=== PATIENT | male | born 1970 | race African-American/Black ===

== ENCOUNTER 2016-12-30 20:32 | Outpatient (CLI) ==
[2016-12-30 23:36] VITALS: BMI 29.0
== END 2016-12-30 20:33 ==
LOC: AMBL 20:32
PROVIDERS: ATTEND Internal Medicine Geriatric Medicine
DX: R07.9 Chest pain, unspecified (principal); R20.2 Paresthesia of skin; I49.3 Ventricular premature depolarization; D57.3 Sickle-cell trait

== ENCOUNTER 2016-12-30 20:49 | Observation (INO) ==
[2016-12-30 21:19] LABS: BASOPHILS % (AUTO) 0.2 % (0.0-3.0); EOSINOPHILS % (AUTO) 0.4 % (0.0-7.0); HEMOGLOBIN 13.8 g/dl (14.0-18.0); IMMATURE GRANULOCYTE % (AUTO) 0.4 % (0.0-5.0); LYMPHOCYTES # (AUTO) 1.4 K/uL (0.60-3.4); MEAN CORPUSCULAR HEMOGLOBIN 28.3 pg (27.0-31.0); MEAN CORPUSCULAR HGB CONC 33.7 (31.8-35.4); MONOCYTES # (AUTO) 0.6 K/uL (0.4-2.0); MONOCYTES % (AUTO) 10.7 (0-10); NEUTROPHILS # (AUTO) 3.1 K/ul (2.0-6.9); NEUTROPHILS % (AUTO) 61.3; PLATELET COUNT 246 10^3/uL (140-440); RED BLOOD COUNT 4.88 10^6/ul (4.70-6.10); WHITE BLOOD COUNT 5.12 K/ul (4.2-10.2)
[2016-12-30] MEDS ORDERED: ASPIRIN CHEWABLE PO STA (21:34)
[2016-12-30] MEDS ORDERED: NITROSTAT SL STA (21:34)
[2016-12-30] MEDS ORDERED: SODIUM CHLORIDE 1,000 ML IV STA (21:35)
[2016-12-30 21:53] LABS: ALANINE AMINOTRANSFERASE 17 U/L (12-78); ALBUMIN/GLOBULIN RATIO 1.18; ALKALINE PHOSPHATASE 47 U/L (50-136); ANION GAP 13.8; ASPARTATE AMINO TRANSFERASE 20 U/L (15-37); BILIRUBIN,TOTAL 0.38 mg/dL (0.00-1.20); BLOOD UREA NITROGEN 15 mg/dL (7-18); BUN/CREATININE RATIO 11.27; CALCIUM 9.2 mg/dL (8.2-10.2); CARBON DIOXIDE 30 mmol/L (21-32); CHLORIDE 101 mmol/L (98-107); CREATINE KINASE 287 U/L; CREATININE 1.33 mg/dL (0.60-1.10); GLUCOSE 115 mg/dL (70-100); POTASSIUM 3.8 mmol/L (3.5-5.1); SODIUM 141 mmol/L (136-145); TOTAL PROTEIN 7.4 g/dL (6.4-8.2)
[2016-12-30 21:55] LABS: CREATINE KINASE MB 2.1 ng/ml (0.0-3.6)
--- NOTE | 2016-12-30 21:58 | ED.PDOC ---
General ED Provider: Dr. LEXY LISA Chief Complaint: Chest Pain Stated Complaint: Patient is a 46 year old male who comes to the ER with chest pain which he describes as feeling funny that started this evening when he layed down at 2 pm. He states he has been stressed working and not getting any rest. Has a strong family history of CAD at age 50. Time Seen by Physician: 20:50 Mode of Arrival: Ambulance Information Source: Patient, EMT Exam Limitations: No limitations Nursing and Triage Documentation Reviewed and Agree: Yes Cardiovascular Complaint Exam - Chest Pain Complaint/Exam Onset: Gradual Duration: 10 hours Symptoms Are: Still present Timing: Constant Initial Severity: Mild Current Severity: Mild Location: Reports: Left lateral Pain Radiates: Reports: None Character: Reports: Dull Aggravating: Reports: None Alleviating: Reports: None Associated Signs and Symptoms: Denies: Diaphoresis, Nausea, Vomiting, Fever, Palpitations, Cough, Hemoptysis, Back pain, Abdominal pain, Dizziness, Short of air, Calf pain, Calf swelling Related Surgical History: Reports: None History of Healthcare-Acquired Pneumonia: Reports: No AMI/ACS Risk Factors: Reports: None TAD Risk Factors: Reports: None Pulmonary Embolism Risk Factors: Reports: None Prior Care for this Complaint: Yes Recent Stress Test: No Recent Echo/LV Function: No JVD Present: No Subcutaneous Emphysema Present: No Diminshed Breath Sounds: No Reproducible Chest Wall Pain: No Bilateral Pulses Present: No Unequal Pulses Noted: No If Risk Factors for AMI/ACS Consider: EKG, Cardiac Enzymes, Oxygen, Aspirin 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 Quality Indicator For Non-Traumatic Chest Pain/Syncope: EKG Performed Review of Systems - Review Of Systems Constitutional: Reports: Malaise, Other (fatiuged ) Cardiac: Reports: Chest pain GI: Reports: No symptoms : Reports: No symptoms Musculoskeletal: Reports: No symptoms Skin: Reports: No symptoms Neurological: Reports: Anxiety Endocrine: Reports: No symptoms Hematologic/Lymphatic: Reports: No symptoms All Other Systems: Reviewed and Negative Past Medical History - Past Medical History Endocrine: Reports: None Cardiovascular: Reports: None Respiratory: Reports: None Hematological: Reports: None Gastrointestinal: Reports: None Genitourinary: Reports: None Neuro/Psych: Reports: None Musculoskeletal: Reports: None Cancer: Reports: None Other Pertinent Past Medical History: sickle cell trait - Surgical History General Surgical History: Reports: None - Family History Family History: Reports: Heart (at the age 40s and 50s ) - Social History Smoking Status: Never smoker Hx Substance Use: No Alcohol Screening: None - Immunizations Tetanus Shot up to Date: No Physical Exam - Physical Exam Appearance: Ill-appearing Pain Distress: Mild Eyes: KEVIN, EOMI, Conjunctiva clear ENT: Ears normal, Nose normal, Oropharynx normal Neck: Supple Respiratory: Airway patent, Breath sounds clear, Breath sounds equal, Respirations nonlabored Cardiovascular: RRR, Pulses normal, No rub, No murmur GI/: Soft, Nontender, No masses, Bowel sounds normal, No Organomegaly Musculoskeletal: Normal strength, ROM intact, No edema, No calf tenderness Skin: Warm, Dry, Normal color Neurological: Sensation intact, Motor intact, Reflexes intact, Cranial nerves intact, Alert, Oriented Psychiatric: Anxious Interpretation - Radiology Interpretation Radiology Interpretation By: Radiologist Radiology Results: Negative Exam Interpreted: CXR - Advanced Developer Rate: Normal Rhythm: Sinus Ectopy: None - EKG Interpretation Rate: Normal Rhythm: Sinus Ectopy: None ST Segment: Other (non specific ST-T, occasional PVS.) Interpretation: no ischemic changes. Re-Evaluation - Re-Evaluation Time of Re-Evaluation: 21:50 Status: Improved Vital Signs Stable: Yes Pain Level: none Appearance: NAD Critical Care Note - Critical Care Note Total Time (mins): 15 Course - Course Hematology/Chemistry: 12/31/16 04:31 12/31/16 04:31 Orders, Labs, Meds: Lab Review 12/30/16 12/30/16 21:13 21:58 WBC 5.12 RBC 4.88 Hgb 13.8 L Hct 41.0 L MCV 84.0 MCH 28.3 MCHC 33.7 RDW Coeff of Joaquín 13.2 Plt Count 246 Immature Gran % (Auto) 0.4 Neut % (Auto) 61.3 Lymph % (Auto) 27.0 [place] % (Auto) 10.7 H Eos % (Auto) 0.4 Baso % (Auto) 0.2 Immature Gran # (Auto) 0.0 Neut # 3.1 Lymph # 1.4 [place] # 0.6 Eos # 0.0 Baso # 0.0 D-Dimer < 0.19 L Sodium 141 Potassium 3.8 Chloride 101 Carbon Dioxide 30 Anion Gap 13.8 BUN 15 Creatinine 1.33 H Estimated GFR (MDRD) 70.00 BUN/Creatinine Ratio 11.27 Glucose 115 H Calcium 9.2 Magnesium 2.3 H Total Bilirubin 0.38 AST 20 ALT 17 Alkaline Phosphatase 47 L Total Creatine Kinase 287 CK-MB (CK-2) 2.1 CK-MB (CK-2) % 0.78751 Troponin I < 0.0100 Total Protein 7.4 Albumin 4.0 Globulin 3.4 Albumin/Globulin Ratio 1.18 Urine Color Yellow Urine Clarity Clear Urine pH 7.0 Ur Specific [place] 1.010 Urine Protein Negative Urine Glucose (UA) Negative Urine Ketones Negative Urine Blood Negative Urine Nitrite Negative Urine Bilirubin Negative Urine Urobilinogen 0.2 Ur Leukocyte Esterase Negative Orders Category Date Time Status EKG-(ED ONLY) Stat CARDIO 12/30/16 21:06 Completed ED APPLY O2 .ONCE EMERGENCY 12/30/16 21:05 Active ED IV/MEDIPORT/POWERPORT .ONCE EMERGENCY 12/30/16 21:29 Active CBC W/ AUTO DIFF Stat LAB 12/30/16 21:13 Completed COMPREHENSIVE METABOLIC PANEL Stat LAB 12/30/16 21:13 Completed CREATINE KINASE Stat LAB 12/30/16 21:13 Completed D-DIMER Stat LAB 12/30/16 21:13 Completed TROPONIN I Stat LAB 12/30/16 21:13 Completed URINALYSIS C & S IF INDICATED Stat LAB 12/30/16 21:58 Completed 0.9 % Sodium Chloride [Saline Flush] MEDS 12/30/16 21:29 Discontinued 1 syr IVF PRN PRN Aspirin [Aspirin Chewable] MEDS 12/30/16 21:34 Discontinued 324 mg PO ONCE STA Nitroglycerin [Nitrostat] MEDS 12/30/16 21:34 Discontinued 0.4 mg SL ONCE STA Sodium Chloride 0.9% [Sodium Chloride] 1,000 ml MEDS 12/30/16 21:35 Discontinued IV 125 mls/hr CHEST, 2 VIEWS PA & LAT Stat RADS 12/30/16 21:29 Completed Medications Discontinued Medications Generic Name Dose Route Start Last Admin Trade Name Freq PRN Reason Stop Dose Admin Acetaminophen 650 mg 12/30/16 22:35 Tylenol PO Q4H PRN fever or mild pain Aspirin 324 mg 12/30/16 21:34 12/30/16 21:40 Aspirin Chewable PO 12/30/16 21:35 324 mg ONCE STA Administration Aspirin 81 mg 12/31/16 08:00 12/31/16 09:32 Aspirin Ec PO 81 mg DAILYWM JANINE Administration Enoxaparin Sodium 40 mg 12/31/16 09:00 12/31/16 09:35 Lovenox SUBCUT 40 mg DAILY JANINE Administration Sodium Chloride 1,000 mls @ 125 mls/hr 12/30/16 21:35 12/30/16 21:45 Sodium Chloride IV 12/31/16 05:34 125 mls/hr .Q8H STA Administration Sodium Chloride 1,000 mls @ 75 mls/hr 12/30/16 23:00 12/31/16 09:38 Sodium Chloride IV 75 mls/hr .[id number] JANINE Administration Nitroglycerin 0.4 mg 12/30/16 21:34 12/30/16 21:45 Nitrostat SL 12/30/16 21:35 0.4 mg ONCE STA Administration Ondansetron HCl 4 mg 12/30/16 22:35 Zofran 4 Mg/2 Ml IVP Q6H PRN Nausea / Vomiting Sodium Chloride 1 syr 12/30/16 21:29 Saline Flush IVF PRN PRN To flush IV Zolpidem Tartrate 5 mg 12/31/16 00:16 12/31/16 00:23 Ambien PO 12/31/16 00:17 5 mg ONCE STA Administration Vital Signs: Temp Pulse Resp BP Pulse Ox 12/30/16 20:50 97.4 F L 93 H 16 146/80 H 97 MIHAELA Risk Score Age >/= 65: No >/= 3 CAD Risk Factors: No Known CAD (Stenosis >/= 50%): No ASA Use in Past 7 Days: No Severe Angina (>/= 2 episodes in 24 hours): No EKG ST Changes >/= 0.5mm: No Postive Cardiac Marker: No MIHAELA Total Score: 0 MIHAELA Risk Score: Risk Score Odds of by 30D 0 0.1 (0.1-0.2) 1 0.3 (0.2-0.3) 2 0.4 (0.3-0.5) 3 0.7 (0.6-0.9) 4 1.2 (1.0-1.5) 5 2.2 (1.9-2.6) 6 3.0 (2.5-3.6) 7 4.8 (3.8-6.1) Departure - Departure Time of Disposition: 22:06 Disposition: ADMITTED INPATIENT Discharge Problem: Chest pain Condition: Good Pt referred to PMD for follow-up: Yes Allergies/Adverse Reactions: Allergies No Known Allergies Allergy (Unverified 12/30/16 21:01) Home Medications: Ambulatory Orders Multivitamin [Multi-Vitamin Daily] 1 tab PO DAILY 12/30/16 Pantoprazole Sodium [Protonix] 40 mg PO DAILY #30 tablet. 12/31/16 Disposition Discussed With: Patient, Family
[2016-12-30 22:03] LABS: BILIRUBIN,URINE Negative (NEGATIVE); KETONES,URINE Negative (NEGATIVE); LEUKOCYTE ESTERASE ,URINE Negative (NEGATIVE); NITRITE,URINE Negative (NEGATIVE); PROTEIN,URINE Negative (NEGATIVE); URINE, BLOOD Negative (NEGATIVE)
[2016-12-30 22:04] LABS: ADD URINE MICROSCOPIC NO
[2016-12-30] MEDS ORDERED: TYLENOL PO PRN (22:35)
[2016-12-30] MEDS ORDERED: ZOFRAN 4 MG/2 ML IVP PRN (22:35)
[2016-12-30 23:36] VITALS: BMI 29.0
[2016-12-31] MEDS ORDERED: AMBIEN PO STA (00:16)
--- NOTE | 2016-12-31 01:52 | DI ---
EXAM: PA and lateral views of the chest. HISTORY: Chest pain. FINDINGS: The bony structures are unremarkable. The cardiac silhouette and pulmonary vasculature ar e within normal limits. The costophrenic angles are clear. No infiltrate or consolidation. There is an 8 mm round density projecting over the left lower lobe probably representing a nipple shadow. Impression: (Unexpected finding) 8 mm density projecting over the left lung base probably representi ng a nipple shadow. Recommend repeat AP chest with nipple markers to exclude a lung nodule.
[2016-12-31 04:32] LABS: BASOPHILS % (AUTO) 0.2 % (0.0-3.0); EOSINOPHILS % (AUTO) 0.2 % (0.0-7.0); HEMATOCRIT 38.7 % (42.0-52.0); HEMOGLOBIN 13.2 g/dl (14.0-18.0); IMMATURE GRANULOCYTE % (AUTO) 0.2 % (0.0-5.0); LYMPHOCYTES # (AUTO) 1.5 K/uL (0.60-3.4); LYMPHOCYTES % (AUTO) 32.8 (10.0-50.0); MEAN CORPUSCULAR HEMOGLOBIN 28.8 pg (27.0-31.0); MEAN CORPUSCULAR HGB CONC 34.1 (31.8-35.4); MEAN CORPUSCULAR VOLUME 84.3 fl (80.0-94.0); MONOCYTES # (AUTO) 0.5 K/uL (0.4-2.0); MONOCYTES % (AUTO) 10.9 (0-10); NEUTROPHILS # (AUTO) 2.6 K/ul (2.0-6.9); NEUTROPHILS % (AUTO) 55.7; PLATELET COUNT 259 10^3/uL (140-440); RED BLOOD COUNT 4.59 10^6/ul (4.70-6.10)
[2016-12-31 04:54] LABS: ANION GAP 13.2; BUN/CREATININE RATIO 11.3; CALCIUM 8.8 mg/dL (8.2-10.2); CREATININE 1.15 mg/dL (0.60-1.10); POTASSIUM 4.2 mmol/L (3.5-5.1)
[2016-12-31 05:18] LABS: CREATINE KINASE 251 U/L
[2016-12-31 05:19] LABS: CREATINE KINASE MB 1.3 ng/ml (0.0-3.6)
[2016-12-31] MEDS ORDERED: ASPIRIN EC PO SCH (08:00)
[2016-12-31] MEDS ORDERED: LOVENOX SUBCUT SCH (09:00)
[2016-12-31] MEDS: SODIUM CHLORIDE 1,000 ML IV SCH ×2 (09:36→09:38)
--- NOTE | 2016-12-31 11:15 | PCM.CONS ---
CONSULTING PROVIDER: Dr. AASHISH SHEEHAN ATTENDING PROVIDER: Dr. EMI BEARDEN DATE OF SERVICE: 12/31/16 SUBJECTIVE: This 46 year old BLACK/ M was hospitalized 12/30/16. The patient is seen in consultation due to chest discomfort. The patient states that he laid down after having meal of pizza and soda and had a "funny feeling" in his chest. At the present time he has no complaints of chest pain. No nausea or vomiting. He states he has a family history of heart disease. REVIEW OF SYSTEMS: CONSTITUTIONAL: No night sweats. No fatigue, malaise, lethargy. No fever or chills. HEENT: Eyes: No visual changes. No eye pain. No eye discharge. ENT: No runny nose. No epistaxis. No sinus pain. No odynophagia. No congestion. RESPIRATORY: No cough, no congestion. No hemoptysis. CARDIOVASCULAR: No chest pain at present time. No angina symptoms. No CHF symptoms. No atypical chest pain for CAD. No palpitations. No shortness of breath. GASTROINTESTINAL: No abdominal pain. No nausea or vomiting. No diarrhea or constipation. No hematemesis. No hematochezia. GENITOURINARY: No urgency. No frequency. No dysuria. No hematuria. No obstructive symptoms. No discharge. No pain. No significant abnormal bleeding. MUSCULOSKELETAL: No musculoskeletal pain; no joint swelling. NEUROLOGICAL: Awake, alert, oriented to time, place and person. No headache. No neck pain. No syncope. No seizures. No dizziness. PSYCHIATRIC: Not anxious. No depression. No suicidal thoughts. No homicidal thoughts. SKIN: No rash. No lesions. No wounds. ENDOCRINE: No unexplained weight loss. No weight gain. HEMATOLOGIC/LYMPHATIC: No anemia. No purpura. No petechiae. No prolonged or excessive bleeding. No palpable lymph nodes. PHYSICAL EXAMINATION: GENERAL: The patient is awake, alert and oriented, lying/sitting in bed in no distress. VITAL SIGNS: Temperature 98.0 F, Pulse 72, Respiratory Rate 18, BP 135/85, Pulse Ox 100% HEENT: Head normocephalic, atraumatic. Eyes: Extraocular muscles are intact. Pupils are equal, round and reactive to light and accommodation. Ears: No lesions. Nose appeared normal. Throat: No exudate or erythema. NECK: Supple. No JVD, no carotid bruit. No lymphadenopathy or thyromegaly. LUNGS: Clear to auscultation. Percussion note normal. Chest symmetrical. HEART: S1, S2, no S3. No murmurs. No cyanosis or clubbing. No ascites. Pulses: Dorsalis pedis and posterior tibial pulses +1 to +2 both sides. ABDOMEN: Soft. Non-tender. Bowel sounds active. No CVA tenderness. No mass felt. EXTREMITIES: No edema. Full range of motion of all extremities, equal. NEUROLOGIC: No focal deficit. Cranial nerves II through XII are grossly intact. No headache, no double vision or headache. SKIN: Not dry. Intact. Turgor-normal. LYMPHATIC: No palpable lymph nodes/no lymphedema. MUSCULOSKELETAL: Normal joints with no swelling. Muscle tone is normal. LAB REVIEW: 12/31/16 04:31 12/31/16 04:31 12/31/16 04:31: WBC 4.70, RBC 4.59 L, Hgb 13.2 L, Hct 38.7 L, MCV 84.3, MCH 28.8 , MCHC 34.1, RDW Coeff of Joaquín 13.2, Plt Count 259, Immature Gran % (Auto) 0.2, Neut % (Auto) 55.7, Lymph % (Auto) 32.8, [place] % (Auto) 10.9 H, Eos % (Auto) 0.2 , Baso % (Auto) 0.2, Immature Gran # (Auto) 0.0, Neut # 2.6, Lymph # 1.5, [place] # 0.5, Eos # 0.0, Baso # 0.0, Sodium 143, Potassium 4.2, Chloride 104, Carbon Dioxide 30, Anion Gap 13.2, BUN 13, Creatinine 1.15 H, Estimated GFR (MDRD) 83.00, BUN/Creatinine Ratio 11.30, Glucose 93, Calcium 8.8 12/31/16 04:30: Total Creatine Kinase 251, CK-MB (CK-2) 1.3, CK-MB (CK-2) % 0.83382, Troponin I < 0.0100 ASSESSMENT: 1. CHEST DISCOMFORT/CHEST PAIN. RECOMMENDATIONS/PLAN: 1. Echo 2. Stress echo 3. I will review EKGs. Cardiac markers are negative. Telemetry is negative with sinus rhythm. The patient's condition is stable for now. Full consultation to follow. Thanks for the referral. Plan and coordination of the patient's care discussed in the presence of Medical Information Officer and Nurse. EDUCATION: Discussed with the patient cardiovascular disease and its risk factors. CONDITION: Stable ADDENDUM: The patient had echocardiogram done which showed LVH with enlarged LA cavity, normal LV contractility, normal valves. Stress echo negative for ischemia. Good tolerance with METS approximately 13. The patient did not have any arrhythmias during the time he was exercising; post exercise a couple of PVCs noted. The blood pressure response was upper limit of normal but appropriate. RECOMMENDATION: 1. The patient is strongly advised to followup with the primary M.D. for blood pressure check as soon as possible and after that periodically. 2. BP goal 138/85 or less. 3. LVH discussed with the patient with enlarged LA cavity. The patient definitely has very likely hypertensive heart disease. 4. DASH diet discussed for hypertension. 5. Lipid panel pending. 6. Patient has LVH with strain pattern on EKG which goes along with the echo findings. The patient has few PAC and PVC that needs to be monitored. The patient is intelligent and explained of all the findings. Thanks for the referral; the patient is stable enough to be discharged. SCRIBED BY: RHEA GUNN, [employer] scribed while in presence of service performed by Dr. AASHISH SHEEHAN on 12/31/16 ([id number])
[2016-12-31 13:08] LABS: CREATINE KINASE 210 U/L
[2016-12-31 13:09] LABS: CREATINE KINASE MB 1.3 ng/ml (0.0-3.6)
--- NOTE | 2016-12-31 13:34 | STRESSECHO ---
Date of Test: 12/31/16 Reason for Exam: CHEST TIGHTNESS, FREQUENT PAC'S/PVC'S Ordering Physician: HOSPITALIST--MEI BEARDEN Current Medications: ASA, LOVENOX Physical Findings: S1, S2, NO S3 Resting EKG: SINUS RHYTHM/NO ACUTE CHANGES Target Heart Rate: 147/173 STAGE MPH/GRADE HEART RATE BPM BLOOD PRESSURE mmhg RHYTHM S-T SEGMENT +/- UP DOWN SYMPTOMS,COMMENTS At Rest 80 132/68 SR X NONE 1 1.7/10% 110 150/92 SR X NONE 2 2.5/12% 130 140/82 SR X NONE 3 3.4/14% 4 4.2/16% 5 5.0/18% Immediately after 147 SR X FATIGUE Durations of Exercise: 10:00 Maximum Heart Rate Reached: 147 Reason for Termination: FATIGUE 3 MIN POST EXERCISE: HR 80 BPM, BP 130/80 MMHG, SINUS RHYTHM, ST-T +/- INTERPRETATION: 94% OXYGEN SATURATION WITH EXERCISE ON ROOM AIR METS 13.3 1. NO EVIDENCE OF ISCHEMIA BY ST-T WAVE 2. NO CHEST PAIN OR CHEST DISCOMFORT 3. BLOOD PRESSURE RESPONSE: NORMAL 4. NO ARRHYTHMIAS WITH EXERCISE NORMAL LEFT VENTRICULAR CONTRACTILITY--RESTING AND POST EXERCISE MTDD
--- NOTE | 2016-12-31 13:37 | ECHOSTRESS ---
Date of Exam: 12/31/16 Ordering Physician: HOSPITALIST--EMI BEARDEN Reason for Echo: CHEST TIGHTNESS, FREQUENT PVC'S/PAC'S, STRESS TEST--NO ISCHEMIA M-Mode Normal Adult Results LV Dimensions Normal Adult Results AoV Opening excursions >1.6 LVEDD-base- 3.5-5.8 Ao root dimensions 2.0-3.7 LVESD-base- 3.1-4.6 L. Atrium dimensions 1.9-3.8 Post. Wall thickness 0.8-1.1 IV septum (thickness) 0.7-1.2 Post. Wall excursion 0.72-1.3 Septal motion Systolic motion R. Ventricular cavity 1.5-2.0 LVEF 60% Paradoxical septal wall motion 2-D: NORMAL LEFT VENTRICULAR CONTRACTILITY--RESTING AND POST EXERCISE M-MODE: MV: AV: TV: PV: CHAMBER SIZE: WALL MOTION: NORMAL LEFT VENTRICULAR CONTRACTILITY--RESTING AND POST EXERCISE PERICARDIUM: INTERPRETATION: 1. NORMAL LEFT VENTRICULAR CONTRACTILITY--RESTING AND POST EXERCISE MTDD
--- NOTE | 2016-12-31 13:43 | ECHO2D ---
Date of Exam: 12/31/16 Ordering Physician: HOSPITALIST--EMI BEARDEN Reason for Echo: CHEST TIGHTNESS, FREQUENT PAC'S/PVC'S M-Mode Normal Adult Results LV Dimensions Normal Adult Results AoV Opening excursions >1.6 1.6 LVEDD-base- 3.5-5.8 4.9 Ao root dimensions 2.0-3.7 3.4 LVESD-base- 3.1-4.6 L. Atrium dimensions 1.9-3.8 4.2 Post. Wall thickness 0.8-1.1 1.5 IV septum (thickness) 0.7-1.2 1.4 Post. Wall excursion 0.72-1.3 NORMAL Septal motion NORMAL Systolic motion R. Ventricular cavity 1.5-2.0 NORMAL LVEF 60% 58% Paradoxical septal wall motion NORMAL 2-D : ENLARGED LEFT ATRIAL CAVITY--NORMAL VALVES--NORMAL LEFT VENTRICULAR CONTRACTILITY--NO EFFUSION, NO THROMBUS M-MODE: MV: NORMAL AV: NORMAL TV: NORMAL PV: CHAMBER SIZE: ENLARGED LEFT ATRIAL CAVITY WALL MOTION: NORMAL PERICARDIUM: NORMAL INTERPRETATION: 1. LEFT VENTRICULAR HYPERTROPHY WITH ENLARGED LEFT ATRIAL CAVITY (4.2CM) 2. NORMAL LEFT VENTRICULAR CONTRACTILITY 3. NORMAL VALVES MTDD
[2016-12-31 14:17] VITALS: BP 127/81; TEMP 97.7
--- NOTE | 2016-12-31 14:38 | DI ---
EXAM: Single view of the chest. History: Abnormal chest radiograph Comparison: Chest radiograph 12/30/2016 Findings: Heart size is normal. No focal consolidation. No appreciable pleural fluid and no pneumo thorax. No acute osseous abnormalities. The previously described left lung nodule is no longer parker rly identified Impression: No acute cardiopulmonary process.
--- NOTE | 2017-01-01 15:31 | PN ---
DATE OF SERVICE: 12/31/16 SUBJECTIVE: The patient is lying in the bed and not in any distress. Did not have any more pains since admission. The patient is getting Lovenox and the Aspirin, IV fluids. He is feeling better, had a good sleep. REVIEW OF SYSTEMS: CONSTITUTIONAL: No fever, no chills. HEENT: Normal. ENDOCRINE: No weight gain, no weight loss. CVS: No angina symptoms. No CHF symptoms. No palpitations. No atypical chest pain for CAD. No shortness of breath. No PND, no orthopnea. RESPIRATORY: No cough, no hemoptysis. GI: No nausea, no vomiting. No abdominal pain. : No hematuria. No polyuria. MUSCULOSKELETAL:. No joint swelling. PSYCHIATRIC: Not anxious. No depression. No suicidal thoughts. No homicidal thoughts. SKIN: Intact. No rash. PHYSICAL EXAMINATION: V/S: Blood pressure 126/82, respiratory rate 18, heart rate 67, temperature 97.8 and saturation is 100%. HEENT: Normocephalic, atraumatic. Ears, eyes, nose and throat normal. NECK: Supple. No JVD, no carotid bruit. No lymphadenopathy. LUNGS: Clear to auscultation. No rales or rhonchi. HEART: S1, S2 normal. No S3. No murmur, gallop or regurgitation. ABDOMEN: Soft, nontender. Bowel sounds active. No rigidity. No rebound or guarding. No CVA tenderness. EXTREMITIES: No clubbing, cyanosis or pedal edema. MUSCULOSKELETAL: No joint swelling. NEUROLOGIC: Awake, alert, oriented times three. No focal deficit. LYMPHATIC: No lymph nodes palpable. SKIN: Intact. LABS: WBC 5.70, hgb 13.2, hct 38.7, sodium 142, potassium 4.2, chloride 104, bicarb 30 , BUN 13 and creatinine 1.15. Two sets of the cardiac enzymes are negative. Cholesterol is negative. A1c is normal, 5.5. ASSESSMENT: 1. Chest pain, atypical 2. Family history of coronary artery disease 3. Elevated creatinine 4. Anemia PLAN: 1. Cardiology consultation for possible echocardiogram 2. Lifestyle modification 3. No spicy food 4. Protonix 40mg PO daily Will follow the patient in daily rounds. TIME SPENT: More than 30 minutes MTDD
--- NOTE | 2017-01-02 13:39 | HP ---
DATE OF SERVICE: 12/30/16 REASON FOR HOSPITALIZATION: Chest tightness. 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 Had a pizza and food tonight and was laying in the bed and started feeling a heaviness in the chest as if someone was holding him tightly and burning sensation and discomfort in the chest. The patient has family history for coronary artery disease and sister have the coronary artery disease also so he was scared and came to the emergency room for the evaluation. He was seen by Dr. Roche in the emergency. Hgb was 13.8 mildly low, D-dimer negative, creatinine is 1.33 and first set of cardiac enzymes are negative. EKG was done and did not show any acute findings. D-dimer is negative. In review of patient' s pain and the family history the patient was admitted to the observation to rule out cute coronary syndrome. REVIEW OF SYSTEMS: CONSTITUTIONAL: No night sweats. No fatigue, malaise, lethargy. No fever or chills. HEENT: Eyes: No visual changes. No eye pain. No eye discharge. ENT: No runny nose. No epistaxis. No sinus pain. No sore throat. No odynophagia. No ear pain. No congestion. RESPIRATORY: No cough, no congestion. No hemoptysis. CARDIOVASCULAR: No angina symptoms. No CHF symptoms. No atypical chest pain for CAD. No palpitations. No shortness of breath. GASTROINTESTINAL: No abdominal pain. No nausea or vomiting. No diarrhea or constipation. No hematemesis. No hematochezia. GENITOURINARY: No urgency. No frequency. No dysuria. No hematuria. No obstructive symptoms. No discharge. No pain. No significant abnormal bleeding. MUSCULOSKELETAL: No musculoskeletal pain. No joint swelling. No arthritis. NEUROLOGICAL: No headache. No neck pain. No syncope. No seizures. No dizziness. PSYCHIATRIC: Not anxious. No depression. No suicidal thoughts. No homicidal thoughts. SKIN: No rash. No lesions. No wounds. ENDOCRINE: No unexplained weight loss. No weight gain. HEMATOLOGIC/LYMPHATIC: No anemia. No purpura. No petechiae. No prolonged or excessive bleeding. No palpable lymph nodes. PERSONAL/FAMILY/SOCIAL HISTORY: The patient is and lives with the spouse. No alcohol in last seven years. No smoking. Family history: Mother stroke, hypertension and diabetes mellitus.Father questionable lung cancer. Brother and sister both had coronary artery bypass grafting. PAST MEDICAL/SURGICAL PROBLEMS: Sickle cell trait- No symptoms No surgeries. MEDICATIONS: Multivitamin ALLERGIES: No known allergies PHYSICAL EXAMINATION: VITAL SIGNS: Blood pressure 135/85, respiratory rate 18, heart rate 101, temperature 98.0 and saturation 100% on the room air. HEENT: Head normocephalic, atraumatic. Eyes: Extraocular muscles are intact. Pupils are equal, round and reactive to light and accommodation. Ears: No lesions. Nose appeared normal. Throat: No exudate or erythema. NECK: Supple. No JVD, no carotid bruit. No lymphadenopathy or thyromegaly. LUNGS: Clear to auscultation. Percussion note normal. Chest symmetrical. HEART: S1, S2, no S3. No murmurs. No cyanosis or clubbing. No ascites. Pulses: Dorsalis pedis and posterior tibial pulses +1 to +2 both sides. ABDOMEN: Soft. Nontender. Bowel sounds active. No CVA tenderness. No mass felt. EXTREMITIES: No edema. Full range of motion of all extremities, equal. NEUROLOGIC: No focal deficit. Cranial nerves II through XII are grossly intact. No headache, no double vision or headache. SKIN: Not dry. Intact. Turgor - normal. LYMPHATIC: No palpable lymph nodes/no lymphedema. MUSCULOSKELETAL: Normal joints with no swelling. Muscle tone is normal. LABS: WBC 5.12, hgb 13.8, hct 41.0, plt count 246, D-dimer is less than 0.19, sodium 141, potassium 3.8, chloride 101, Bicarb 30, BUN 15, creatinine 1.33 and glucose 115. First set of cardiac enzymes are negative. EKG normal sinus rhythm. TSH is normal ASSESSMENT: 1. Chest pain, rule out ASC 2. Elevated creatinine 3. Anemia 4. Family history of coronary artery disease PLAN: 1. Admit patient to the observation 2. TSH, Lipids and A1c in the morning 3. Cardiology consultation 4. Protonix 40mg PO daily TIME SPENT: More than 70 minutes. MTDD
--- NOTE | 2017-01-15 14:26 | CONS ---
DATE OF CONSULTATION: 12/31/16 REASON FOR CONSULTATION: Chest discomfort HISTORY OF PRESENT ILLNESS: This is a 46-year-old male with complaint of chest discomfort. 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 He reports he had [employer] and [employer] for lunch. He laid down to sleep about 1430. Reports he awoke with a "funny feeling" in his chest. He reprots slight shortness of air. H:e states he was sweating but he attributed this to keeping thermal sock cap, t-shirt and wrapping up in blankets. No radiation of pain. No nausea. REVIEW OF SYSTEMS: CONSTITUTIONAL: Fatigue. No night sweats. No fever or chills. HEENT: Eyes: No visual changes. No eye pain. No eye discharge. ENT: No runny nose. No epistaxis. No sinus pain. No sore throat. No odynophagia. No ear pain. No congestion. RESPIRATORY: Cough with white mucus. No hemoptysis. CARDIOVASCULAR: No angina symptoms. No CHF symptoms. GASTROINTESTINAL: No melena No weight loss. GENITOURINARY: No urgency. No frequency. No dysuria. No hematuria. No obstructive symptoms. No discharge. No pain. No significant abnormal bleeding. MUSCULOSKELETAL: No musculoskeletal pain. No joint swelling. NEUROLOGICAL: No headache. No neck pain. No syncope. No seizures. No dizziness. PSYCHIATRIC: Anxious. No depression. No suicidal thoughts. No homicidal thoughts. SKIN: No rash. No lesions. No wounds. ENDOCRINE: No unexplained weight loss. No weight gain. HEMATOLOGIC/LYMPHATIC: No anemia. No purpura. No petechiae. No prolonged or excessive bleeding. No palpable lymph nodes. MEDICATIONS: Multivitamin ALLERGIES: NKDA PAST MEDICAL HISTORY: Sickle cell trait - no symptoms PAST SURGICAL HISTORY: None SOCIAL/PERSONAL/FAMILY HISTORY: Nonsmoker. No alcohol use - last 7 years ago. . Family History: Mother - stroke, hypertension, diabetes mellitus. Father - , question lung cancer. Brother and sister both had CABG. The patient states he has been stressed working and not getting any rest, cold symptoms and taking 1 oz NyQuil for past 3 days. PHYSICAL EXAMINATION: VITAL SIGNS: Pulse 72, BP 135/85, temperature 98, 02 sat 100% on 2L. Weight 185 lbs. BMI 29. HEENT: Head normocephalic, atraumatic. Eyes: Extraocular muscles are intact. Pupils are equal, round and reactive to light and accommodation. Ears: No lesions. Nose appeared normal. Throat: No exudate or erythema. NECK: Supple. No JVP, no carotid bruit. No lymphadenopathy or thyromegaly. LUNGS: Clear to auscultation. Percussion note normal. Chest symmetrical. HEART: S1, S2, no S3. No murmurs. No cyanosis or clubbing. No ascites. Pulses : Dorsalis pedis and posterior tibial pulses +1 both sides. ABDOMEN: Soft. Nontender. Bowel sounds active. No CVA tenderness. No mass felt. EXTREMITIES: Trace edema. Full range of motion of all extremities, equal. NEUROLOGIC: No focal deficit. Cranial nerves II through XII are grossly intact. No headache, no double vision or headache. SKIN: Not dry. Intact. Turgor - normal. LYMPHATIC: No palpable lymph nodes/no lymphedema. MUSCULOSKELETAL: Normal joints with no swelling. Muscle tone is normal. ASSESSMENT: 1. CHEST PAIN, LIKELY REFLUX 2. FAMILY HISTORY OF HEART DISEASE 3. LVH BY EKG WITH PACs AND PVCs LABS/X-RAYS/INVESTIGATIONS/INTERIM RELEVANT DATA: Chest x-ray no infiltrate or consolidation. EKG - no ischemia. WBC within normal limits. Hgb 13.2, hct 38.7. [place]% 10.9 D. dimer less 0.19, magnesium 2.3 , creatinine 1.15. CPK, MB, troponin within normal limits times two. TSH 1.480 , triglycerides 37, cholesterol 124, chol/HDL 3.0, non HDL 82, A1C 5.5 PLAN: 1. Echo - LVH with enlarged LA cavity 2. Stress echo - no ischemia, METS more than 13.0. 3. DASH diet 4. Goal for blood pressure 135/85 or less. 5. No arrhythmias with exercise. 6. Get primary M.D. and followup on your blood pressure. Thanks for the referral. SEGUNDO
--- NOTE | 2017-02-04 11:32 | DS ---
DATE OF SERVICE: 12/31/16 FINAL DIAGNOSIS: 1. Chest pain, noncardiac 2. Family History of heart disease 3. Enlarged heart by EKG with PVCs and PACs 4. Anemia which further needs evaluation 5. History of sickle cell traits 6. Hammer toe on the great toe 7. Peptic Ulcer disease DISCHARGE INSTRUCTIONS: Discharge the patient home. Lifestyle modification weight loss been discussed. Continue home medication. Followup with primary MD as soon as possible when you go back to your home town. MEDICATIONS AT DISCHARGE: Multivitamin NEW PRESCRIPTIONS: Protonix 40mg PO daily DIET INSTRUCTIONS: Cardiac healthy ACTIVITY: As much as tolerated SMOKING: Non-Smoker DISEASE SPECIFIC EDUCATION: Peptic ulcer disease and spicy food, fried food and the cheese been discussed not to eat. HOSPITAL COURSE: Hugh Lew who is a 46 year old male came to the emergency room with chest tightness and heaviness after he ate pizza. Had cold symptoms approximately one week and took NyQuil last three days. He came to the emergency room and was seen by Dr. Roche in the ER. Hgb was 13.8, D-dimer negative, creatinine 1.33 and glucose 155. First set of cardiac enzymes are negative. The patient had a family history of coronary artery disease. At that time the patient was admitted into the observation to rule out coronary artery disease. Cardiology consultation obtained with Dr. Santiago who was courteous enough to come and see the patient and with the stress echocardiogram which did not show any changes. Regular echocardiogram did show the enlarged heart with ejection fraction of 60% . His A1c was 5.5, cholesterol panel was normal. With the Protonix the patient' s pain was better, did not have any more pain. Three sets of cardiac enzymes were negative. At that time the patient was discharged home and strictly advised to have a followup with primary MD. Lifestyle modification weight loss and risk of coronary artery disease been discussed. TIME SPENT: More than 45 minutes today. SEGUNDO
== END 2016-12-31 15:35 | disposition home or self-care (01) ==
LOC: ED 20:49 → MEDSURG A 22:25
PROVIDERS: ADMIT Emergency Medicine; ATTEND Emergency Medicine
DX: R07.89 Other chest pain (principal); I51.7 Cardiomegaly; I49.3 Ventricular premature depolarization; I49.1 Atrial premature depolarization; R79.89 Other specified abnormal findings of blood chemistry; D64.9 Anemia, unspecified; D57.3 Sickle-cell trait; Z82.49 Family history of ischemic heart disease and other diseases of the circulatory system; K27.9 Peptic ulcer, site unspecified, unspecified as acute or chronic, without hemorrhage or perforation
CPT/HCPCS: 36415; 80048; 80053; 80061; 81001; 82550; 82553; 83036; 83735; 84443; 84484; 85025; 85379; 93005; 93010; 96360; 96361; 96372; 99217; 99220; 99284